=== PATIENT | female | born 1980 | race Two or more races ===

== ENCOUNTER → 2018-03-06 | Emergency (ER) | payer OTHER ==
[~2018-03-06] VITALS: Ht 160 cm; Wt 48.1 kg
[~2018-03-06] MED LIST: PREDNISONE20 MG PO
== END | disposition home or self-care (01) ==
LOC: ER 01:39
DX: M94.0 Chondrocostal junction syndrome [Tietze] (principal)

== ENCOUNTER 2021-10-29 03:13 | Inpatient (IN) | payer OTHER ==
[~2021-10-29] VITALS: Ht 162.6 cm; Wt 43.1 kg
--- NOTE | 2021-10-29 03:27 | NUR ---
PATIENT IS RECIEVED SAYING THAT SHE HAS BEEN WITHOUT EATING FOR 5 DAYS DUE TO A DIAGNOSIS OF SYSTEMIC SCLEROSIS. PATIENT SAYS THAT DR. BRI MALDONADO ADVISED HER TO COME TO THE EMERGENCY ROOM IMMEDIATELY. PATIENT SAYS THE CONDITION LEAVES HER WITH RESPIRATORY DIFFICULTY.
--- NOTE | 2021-10-29 04:35 | NUR ---
SE REALIZAN MUESTRAS DE MIGUEL POR ORDEN MEDICA, SE RREALIZA ADMINISTRACION DE MEDICAMENTOS POR ORDEN MEDICA, Y SE ORIENTA A PACIENTE Y FAMILIAR SOBRE USO Y EFECTOS DE LOS MEDICAMENTOS A SER ADMINISTRADOS.
--- NOTE | 2021-10-29 04:37 | NUR ---
PACIENTE EN ESPERA DE ENTREGAR LA MUETSRA DE ORINA, SE ENTREGA EMBACE Y SE ORIENTA SOBRE LA MANERA CORECTA DE BRISA LA MISMA.
--- NOTE | 2021-10-29 07:18 | NUR ---
SE RECIBE PACIENTE ALERTA EN JACKELYN CON BARANDAS ELEVADAS POR PRECAUSION, RECIBIENDO TX DE IV FLUIDS CON AREA DE VENOPUNCION PATENTE, MANSOOR DE EDEMAS Y ERITEMA, PENDIENTE CONSULTA CON EL DR. VY FLANNERY.
[2021-10-30] MEDS ORDERED: MELOXICAM7.5 MG (09:34)
[2021-10-30] MEDS ORDERED: PREDNISONE10 M2 (09:35)
[2021-11-01] MEDS ORDERED: PREDNISOLO15 MG/5 ML PO (17:46)
[2021-11-01] MEDS ORDERED: ORPHENADRINE C100 MG PO (17:47)
[2021-11-01] MEDS ORDERED: KETO10TA2 PO (17:49)
[2021-11-01] MEDS ORDERED: PROTEINEX-18 LI30 ML PO (17:50)
[2021-11-01] MEDS ORDERED: PEPCID AC20 MG PO (17:53)
== END 2021-11-01 22:40 | disposition home or self-care (01) | DRG 57 ==
LOC: ER 03:13 → SURH 11:49
PROVIDERS: ADMIT Internal Medicine Hematology & Oncology; ATTEND Internal Medicine Hematology & Oncology
DX: G70.80 Lambert-Eaton syndrome, unspecified (principal); E44.0 Moderate protein-calorie malnutrition; R13.12 Dysphagia, oropharyngeal phase; M34.1 CR(E)ST syndrome; F43.23 Adjustment disorder with mixed anxiety and depressed mood; E86.0 Dehydration; F43.20 Adjustment disorder, unspecified; E87.8 Other disorders of electrolyte and fluid balance, not elsewhere classified